=== PATIENT | male | born 1990 | race Caucasian/White ===

== ENCOUNTER 2016-11-16 22:52 | Emergency (ER) | payer OTHER ==
--- NOTE | 2016-11-18 07:39 | ER ---
ADMIT: 11/16/2016 RM/LOC: ER [facility] MR#: [id number] [place], [place] [id number] JACOB KENT [address] [place] [address] Emergency Room Report SEX: M AGE: 26 : 1990 DATE: 11/16/2016 HISTORY OF PRESENT ILLNESS: The patient is a 26-year-old male, came here because chief complaint of right proximal palmar index finger laceration. 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 Vaccination is up-to-date. PHYSICAL EXAMINATION: In the head and neck, chest, and abdomen, there was no trauma, and the examination was noncontributory. In the right hand, there is a 5 mm superficial laceration of the skin without any active bleeding or tendon injury with intact neurovascular exam. The wound was cleaned and was dressed with bacitracin ointment. The patient supposed to be discharged to work. Cornell Christensen MD/ lyla JOB #: [id number] CC: Cornell Christensen MD, Attending Physician Jeannette Mojica MD, Family Physician
== END 2016-11-17 05:15 | disposition home or self-care (01) ==
LOC: ER 22:52
DX: S61.210A Laceration without foreign body of right index finger without damage to nail, initial encounter (principal); E03.9 Hypothyroidism, unspecified; Z79.899 Other long term (current) drug therapy; W26.0XXA Contact with knife, initial encounter; Y92.63 Factory as the place of occurrence of the external cause; Y99.0 Civilian activity done for income or pay